=== PATIENT | female | born 1990 | race Caucasian/White ===

== ENCOUNTER 2017-08-19 06:28 | Emergency (ER) | payer SELFPAY ==
[~2017-08-19] VITALS: Ht 167.6 cm; Wt 61.2 kg
[2017-08-19 06:30] VITALS: BP_SYST 117
--- NOTE | 2017-08-19 06:55 | NUR ---
Patient to ER bed 7 to gown for evaluation. Side rails up. Report given to Siddhartha RODAS.
--- NOTE | 2017-08-19 07:00 | NUR ---
Pt is AAO x 4 and ambulatory, complaining of wound s/p bug bite 6 days ago. Pt states she was camping and noticed a bug bite to the right hip, measured at 1.5cm x 2 cm with a depth of 1.7cm. Noted yellow discoloration to center of wound, purulent drainage, erythema around edges and to surrounding skin. Pt denies any pain, N/V or fever. No other injuries/complaints per patient or noted.
--- NOTE | 2017-08-19 07:03 | NUR ---
ER at bedside examining patient.
[2017-08-19] MEDS ORDERED: CLINDAMYCIN 600 mg/50mL D5W 50 ML IV ONE (07:15)
--- NOTE | 2017-08-19 07:40 | NUR ---
medication was given, pt tolerated well. no adverse reaction, will continue to monitor.
[2017-08-19 07:42] LABS: BASOPHILS # (AUTO) 0.1 K/uL (0.0-0.2); BASOPHILS % (AUTO) 0.7 % (0.0-2.0); EOSINOPHILS # (AUTO) 0.2 K/uL (0.0-0.4); EOSINOPHILS % (AUTO) 1.8 % (0.0-4.0); HEMATOCRIT 39.3 % (36-48); HEMOGLOBIN 13.1 g/dL (12.0-16.0); LYMPHOCYTES # (AUTO) 3.2 K/uL (1.0-5.5); LYMPHOCYTES % (AUTO) 36.6 % (20.5-51.5); MEAN CORPUSCULAR HEMOGLOBIN 30 pg (27-31); MEAN CORPUSCULAR HGB CONC 33 % (32-36); MEAN CORPUSCULAR VOLUME 91 fL (79.0-98.0); MONOCYTES # (AUTO) 0.7 K/uL (0.0-1.0); MONOCYTES % (AUTO) 7.5 % (1.7-9.3); NEUTROPHILS # (AUTO) 4.6 K/uL (1.8-7.7); NEUTROPHILS % (AUTO) 53.4 % (40.0-70.0); PLATELET COUNT (AUTO) 367 K/uL (130-430); RED BLOOD CELL COUNT(AUTO) 4.34 MIL/uL (4.2-6.2); RED CELL DISTRIBUTION WIDTH 11.9 % (9.0-15.0); WHITE BLOOD COUNT (AUTO) 8.8 K/uL (4.8-10.8)
--- NOTE | 2017-08-19 07:49 | NUR ---
ER Dr. Monteiro at bedside examining patient.
--- NOTE | 2017-08-19 07:52 | NUR ---
Cleansed site with normal saline, pat dry, and applied non-adherent dressing, per Dr. Monteiro orders.
[2017-08-19 08:26] LABS: CREATININE 0.74 mg/dL (0.55-1.30); POTASSIUM 3.6 mmol/L (3.5-5.1)
[2017-08-19 08:31] LABS: ALBUMIN 3.7 g/dL (3.4-4.8); TOTAL BILIRUBIN 0.2 mg/dL (0.0-1.0)
[2017-08-19 08:44] VITALS: BP_SYST 111
--- NOTE | 2017-08-19 08:44 | NUR ---
Patient given written and verbal discharge instructions and verbalizes understanding. ER MD discussed with patient the results and treatment provided. Patient in stable condition. ID arm band removed. IV catheter removed intact and dressing applied, no active bleeding. Rx of Bactroban, Tylenol, and Clindamycin given. Patient educated on pain management and to follow up with PMD. Pain Scale 0. Opportunity for questions provided and answered. Medication side effect fact sheet provided.
[2017-08-19] MEDS ORDERED: NORMAL SALINE 5 ML DISP.SYRIN IVF SCH (14:00)
== END 2017-08-19 08:44 | disposition home or self-care (01) ==
LOC: SED 06:28
DX: S70.261A Insect bite (nonvenomous), right hip, initial encounter (principal); L03.115 Cellulitis of right lower limb; W57.XXXA Bitten or stung by nonvenomous insect and other nonvenomous arthropods, initial encounter; Y93.01 Activity, walking, marching and hiking; Y92.89 Other specified places as the place of occurrence of the external cause; Y99.8 Other external cause status
CPT/HCPCS: 36415; 80053; 85025; 87040; 96365; 99284; J3490